=== PATIENT | female | born 1960 | race Caucasian/White ===

== ENCOUNTER → 2017-02-17 | Outpatient (CLI) | payer BC ==
--- NOTE | 2017-02-18 15:01 | MY ---
EXAMINATION: Bilateral digital mammography utilizing CAD. HISTORY: Screening exam. Comparison is made to previous studies dated 12/21/2014, 09/29/2012. FINDINGS: Bilateral scattered fibroglandular densities. There are stable loosely grouped calcific ations within the inferior right breast. No suspicious calcifications, masses or architectural dist ortions. No pathologic appearing lymph nodes, no abnormal skin thickening or nipple inversion. C AD highlighted regions appear normal at this time. IMPRESSION: BI-RADS category II -benign finding. Continued screening according to ACR-ACS guidel stefanie suggested. THE FALSE-NEGATIVE RATE OF MAMMOGRAM IS APPROXIMATELY 10%. MANAGEMENT OF A PALPABLE ABNORMALITY MUST BE BASED UPON CLINICAL GROUNDS. SENSITIVITY FOR DETECTION OF ABNORMALITIES IN DENSE BREASTS IS LOW. NOTE: A letter will be sent to the patient regarding findings. [facility] -- CECILY Yu [phone] - FAX [phone]
== END ==
LOC: MW.MAM 15:49
PROVIDERS: ATTEND Obstetrics & Gynecology
DX: Z12.31 Encounter for screening mammogram for malignant neoplasm of breast (principal)
CPT/HCPCS: G0202; G0202-26

== ENCOUNTER 2021-10-13 12:53 | Emergency (ER) | payer BC ==
[2021-10-13] MEDS ORDERED: Metoclopramide 10 MG/2 ML SDV IVPUSH ONE (14:57)
--- NOTE | 2021-10-13 15:01 | EDM.PDOC ---
ED HPI GENERAL MEDICAL PROBLEM - General Chief Complaint: General Stated Complaint: DIZZY SICK Time Seen by Provider: 10/13/21 14:43 Source of Information: Reports: Patient History Limitations: Reports: No Limitations - History of Present Illness INITIAL COMMENTS - FREE TEXT/NARRATIVE: Patient is a 60-year-old female who presents today for neck and head pain. Patient states she was seen a chiropractor yesterday some adjustments since then she is a this headache neck pain and just not feeling right in her face. Denies any other neurological symptoms no vision changes no change in mental status no changes in sensation or weakness in extremities. Head Pain Score (Numeric/FACES): 7 - Related Data Allergies Allergy/AdvReac Type Severity Reaction Status Date / Time Latercillin Allergy Hives Uncoded 10/13/21 13:49 Home Meds: Home Meds Escitalopram [Lexapro] 10 mg PO DAILY 08/01/18 [History] Hydrocodone/Acetaminophen [Hydrocodon-Acetaminophen 5-325] 1 each PO Q4HR PRN #20 tablet 08/01/18 [Rx] Past Medical History - Past Health History Medical/Surgical History: Denies Medical/Surgical History Other Cardiovascular History: Recent Stress test Jesús, turned out good, " have had symptoms of pain behind breast bone, discovered drinking water or anything does help relieve" Other Gastrointestinal History: "Recent symptoms of feeling pain right behind breastbone, relieved with water and feels kind of in steps that it relieves it, I can feel it pass through 'different feeling'" 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: Musculoskeletal History: Reports: Fracture Other Musculoskeletal History: May have fractured an ankle bothered for 8 months at one time, "LEFT Hip pain, low back and Left Shoulder pain" Psychiatric History: Reports: Anxiety Dermatologic History: Reports: Other (See Below) Other Dermatologic History: hx: excision pre-cancerous skin area to face - Infectious Disease History Infectious Disease History: Reports: None - Past Surgical History Oncologic Surgical History: Reports: Lumpectomy, Other (See Below) Other Oncologic Surgeries/Procedures: Right Benign Breast Lumpectomy years ago Social & Family History - Family History Family Medical History: No Pertinent Family History - Caffeine Use Caffeine Use: Reports: Coffee ED ROS GENERAL - Review of Systems Review Of Systems: See Below Constitutional: Reports: No Symptoms HEENT: Reports: No Symptoms Respiratory: Reports: No Symptoms Cardiovascular: Reports: No Symptoms Endocrine: Reports: No Symptoms GI/Abdominal: Reports: No Symptoms : Reports: No Symptoms Musculoskeletal: Reports: No Symptoms Skin: Reports: No Symptoms Neurological: Reports: Headache, Numbness Psychiatric: Reports: No Symptoms Hematologic/Lymphatic: Reports: No Symptoms Immunologic: Reports: No Symptoms ED EXAM, GENERAL - Physical Exam Exam: See Below Exam Limited By: No Limitations General Appearance: Alert, WD/WN, No Apparent Distress Eye Exam: Bilateral Eye: EOMI, PERRL Ears: Normal External Exam, Normal TMs Nose: Normal Inspection Head: Atraumatic Neck: Normal Inspection, Supple, Non-Tender, Full Range of Motion Respiratory/Chest: No Respiratory Distress, Lungs Clear, Normal Breath Sounds Cardiovascular: Normal Peripheral Pulses, Regular Rate, Rhythm, No Edema GI/Abdominal: Normal Bowel Sounds, Soft, Non-Tender Extremities: Normal Inspection Neurological: Alert, Oriented, CN II-XII Intact, Normal Cognition, Normal Gait Course - Vital Signs Last Recorded V/S: Last Vital Signs Temp 96.9 F 10/13/21 13:50 Pulse 67 10/13/21 13:50 Resp 16 10/13/21 13:50 BP 124/73 10/13/21 13:50 Pulse Ox 97 10/13/21 13:50 - Orders/Labs/Meds Labs: Laboratory Tests 10/13/21 10/13/21 Range/Units 15:55 15:55 WBC 6.83 (4.0-11.0) K/uL RBC 4.41 (4.30-5.90) M/uL Hgb 13.7 (12.0-16.0) g/dL Hct 41.0 (36.0-46.0) % MCV 93.0 (80.0-98.0) fL MCH 31.1 (27.0-32.0) pg MCHC 33.4 (31.0-37.0) g/dL RDW Std Deviation 41.8 (28.0-62.0) fl RDW Coeff of Steven 12 (11.0-15.0) % Plt Count 291 (150-400) K/uL MPV 10.80 (7.40-12.00) fL Neut % (Auto) 72.3 (48.0-80.0) % Lymph % (Auto) 21.1 (16.0-40.0) % [place] % (Auto) 5.4 (0.0-15.0) % Eos % (Auto) 0.9 (0.0-7.0) % Baso % (Auto) 0.3 (0.0-1.5) % Neut # (Auto) 4.9 (1.4-5.7) K/uL Lymph # (Auto) 1.4 (0.6-2.4) K/uL [place] # (Auto) 0.4 (0.0-0.8) K/uL Eos # (Auto) 0.1 (0.0-0.7) K/uL Baso # (Auto) 0.0 (0.0-0.1) K/uL Nucleated RBC % 0.0 /100WBC Nucleated RBCs # 0 K/uL Sodium 141 (136-145) mmol/L Potassium 4.1 (3.5-5.1) mmol/L Chloride 104 (98-107) mmol/L Carbon Dioxide 26.2 (21.0-32.0) mmol/L BUN 13 (7.0-18.0) mg/dL Creatinine 0.8 (0.6-1.0) mg/dL Est Cr Clr Drug Dosing 66.19 mL/min Estimated GFR (MDRD) > 60.0 ml/min Glucose 113 H (74-106) mg/dL Calcium 9.4 (8.5-10.1) mg/dL Total Bilirubin 0.4 (0.2-1.0) mg/dL AST 15 (15-37) IU/L ALT 25 (14-63) IU/L Alkaline Phosphatase 57 (46-116) U/L Total Protein 8.0 (6.4-8.2) g/dL Albumin 4.3 (3.4-5.0) g/dL Globulin 3.7 (2.6-4.0) g/dL Albumin/Globulin Ratio 1.2 (0.9-1.6) Meds: Medications Discontinued Medications Generic Name Dose Route Start Last Admin Trade Name Freq PRN Reason Stop Dose Admin Iopamidol 100 ml 10/13/21 17:48 10/13/21 17:49 Iopamidol 755 Mg/Ml 500 Ml Multipack Bottle IVPUSH 10/13/21 17:49 100 ml ONETIME ONE Administration Metoclopramide HCl 10 mg 10/13/21 14:57 10/13/21 16:11 Metoclopramide 10 Mg/2 Ml Sdv IVPUSH 10/13/21 14:58 Not Given ONETIME ONE - Re-Assessments/Exams Free Text/Narrative Re-Assessment/Exam: 10/13/21 18:03 Pt updates phone number is [phone]-patient [phone] Departure - Departure Time of Disposition: 18:03 Disposition: Against Medical Advice 07 Condition: Fair Clinical Impression: Brain edema - Discharge Information *PRESCRIPTION DRUG MONITORING PROGRAM REVIEWED*: Not Applicable *COPY OF PRESCRIPTION DRUG MONITORING REPORT IN PATIENT NOEL: Not Applicable Instructions: Cerebral Edema, Adult Referrals: Garth Khan MD [Primary Care Provider] - Forms: ED Department Discharge Additional Instructions: You were seen today for head and neck pain. We did a CAT scan which you we are giving you results printed out separately. It shows some enhancing lesions that we are not clear as to what they are. The worst case scenario that this could possibly be a cancer like mass or an abscess we need to do a MRI to get a better picture of what these lesions are we would have like for you to stay in the hospital however you would like to leave and follow-up with your primary care physician. We stressed to you that this is important for you to please follow- up as soon as possible if you cannot get into see your primary care physician tomorrow or the next day to return to the ED immediately. The following information is given to patients seen in the emergency department who are being discharged to home. This information is to outline your options for follow-up care. We provide all patients seen in our emergency department with a follow-up referral. The need for follow-up, as well as the timing and circumstances, are variable depending upon the specifics of your emergency department visit. If you don't have a primary care physician on staff, we will provide you with a referral. We always advise you to contact your personal physician following an emergency department visit to inform them of the circumstance of the visit and for follow-up with them and/or the need for any referrals to a consulting specialist. The emergency department will also refer you to a specialist when appropriate. This referral assures that you have the opportunity for follow-up care with a specialist. All of these measure are taken in an effort to provide you with optimal care, which includes your follow-up. Under all circumstances we always encourage you to contact your private physician who remains a resource for coordinating your care. When calling for follow-up care, please make the office aware that this follow-up is from your recent emergency room visit. If for any reason you are refused follow-up, please contact the [facility] Emergency Department at and asked to speak to the emergency department charge nurse. Please follow up with your primary care physician. If you do not have a primary care physician, see below: [facility] [address] [place] [id number] [facility] [address] [place] [address] Sepsis Event Note (ED) - Evaluation Sepsis Screening Result: No Definite Risk - Focused Exam Vital Signs: Vital Signs Temp Pulse Resp BP Pulse Ox 10/13/21 13:50 96.9 F 67 16 124/73 97 - Assessment/Plan Plan: Patient is a 60-year-old female presents today for neck and hip pain after seeing a chiropractor. Patient sign of any decrease in station no neurological deficits patient will have a CT head and neck and be reassessed.
[2021-10-13 16:30] LABS: BLOOD UREA NITROGEN,BUN 13 mg/dL (7.0-18.0); CARBON DIOXIDE,CO2 26.2 mmol/L (21.0-32.0); CHLORIDE,CL 104 mmol/L (98-107); GLUCOSE RANDOM 113 mg/dL (74-106); POTASSIUM,K 4.1 mmol/L (3.5-5.1); SODIUM,NA 141 mmol/L (136-145)
--- NOTE | 2021-10-13 17:35 | CT ---
INDICATION: Headache, neck pain. TECHNIQUE: CTA head with contrast bolus tracking and 3D MIP reconstruction. CTA neck with contrast bolus tracking and 3D MIP reconstruction. FINDINGS: CTA head: There are at least 3 masses centered in the right temporal lobe that have thick peripheral enhancement and marked surrounding edema. The largest measures nearly 4 centimeters maximally. There is resulting mild midline shift of 2 millimeters to the left. Angiographically, there is normal filling of the major vasculature. There is no large vessel occlusion. No aneurysm is identified. CTA neck: There is no carotid or vertebral artery stenosis or dissection. IMPRESSION: Three enhancing masses centered in the right temporal lobe that may represent tumor or abscess. Recommend contrast-enhanced MRI for further evaluation. Preliminary results were discussed with Dr. Lunsford at 1730 hours on 10/13/2021. Please note that all CT scans at this facility use dose modulation, iterative reconstruction, and/or weight-based dosing when appropriate to reduce radiation dose to as low as reasonably achievable. Dictated by Abelardo Zavala MD @ 10/14/2021 5:52:40 AM (Electronically Signed)
[2021-10-13] MEDS ORDERED: Iopamidol 755 MG/ML 500 ML Multipack Bottle IVPUSH ONE (17:48)
[2021-10-13 19:27] VITALS: BP 121/71; PULSE 71
== END 2021-10-13 18:05 | disposition left against medical advice (07) ==
LOC: MW.ED 12:53
DX: G93.6 Cerebral edema (principal); Z88.0 Allergy status to penicillin
CPT/HCPCS: 36415; 70496; 70498; 80053; 85025; 99284; Q9967

== ENCOUNTER 2022-09-25 22:19 | Emergency (ER) | payer BC ==
[2022-09-26] MEDS ORDERED: Sodium Chloride 0.9% 2.5 ML Syringe FLUSH PRN (00:12)
[2022-09-26] MEDS ORDERED: Sodium Chloride 0.9% 10 ML Syringe FLUSH PRN (00:12)
[2022-09-26 00:37] LABS: CARBON DIOXIDE,CO2 29.5 mmol/L (21.0-32.0); POTASSIUM,K 4.1 mmol/L (3.5-5.1)
[2022-09-26] MEDS ORDERED: Alum Hydro/Mag Hydro/Simeth XS 15 ML, Lidocaine 2% 5 ML PO ONE ×2 (01:14)
[2022-09-26] MEDS ORDERED: Morphine 2 MG/ML SYRINGE IVPUSH ONE (01:55)
[2022-09-26] MEDS ORDERED: Iopamidol 755 MG/ML 500 ML Multipack Bottle IVPUSH STA (03:06)
[2022-09-26 03:30] VITALS: BP 119/76; PULSE 64
== END 2022-09-26 03:25 | disposition home or self-care (01) ==
LOC: MW.ED 22:19
DX: R07.89 Other chest pain (principal); Z88.0 Allergy status to penicillin
CPT/HCPCS: 36415; 71045; 71275; 80053; 83690; 84484; 85025; 85379; 93005; 99285; A9270; Q9967

== ENCOUNTER 2022-09-27 06:04 | Emergency (ER) | payer BC ==
[2022-09-27 07:05] LABS: CARBON DIOXIDE,CO2 28.9 mmol/L (21.0-32.0); POTASSIUM,K 3.8 mmol/L (3.5-5.1)
[2022-09-27] MEDS ORDERED: Lactated Ringers 1,000 ML IV ONE (07:16)
[2022-09-27] MEDS ORDERED: diphenhydrAMINE 50 MG/ML SDV IVPUSH ONE (07:16)
[2022-09-27] MEDS ORDERED: Prochlorperazine 10 MG in Sodium Chloride 0.9% 50 ML IV ONE (07:16)
[2022-09-27 07:33] LABS: CORONAVIRUS COVID-19 NAA NEGATIVE (NEGATIVE); INFLUENZA A NAA NEGATIVE (NEGATIVE); INFLUENZA B NAA NEGATIVE (NEGATIVE); RESPIRATORY SYNCYTIAL VIR NAA NEGATIVE (NEGATIVE)
[2022-09-27] MEDS ORDERED: Ketorolac 30 MG/ML SDV IVPUSH ONE (07:40)
[2022-09-27] MEDS ORDERED: Dexamethasone 4 MG Tab PO ONE (07:41)
[2022-09-27 09:05] VITALS: BP 125/64; PULSE 54
== END 2022-09-27 09:05 | disposition home or self-care (01) ==
LOC: MW.ED 06:04
DX: C71.9 Malignant neoplasm of brain, unspecified (principal); Z88.0 Allergy status to penicillin; Z20.822 Contact with and (suspected) exposure to COVID-19
CPT/HCPCS: 0241U; 36415; 70450; 80053; 85025; 96365; 96375; 99284; J0780; J1200; J1885; J3490; J7120; J8540

== ENCOUNTER 2022-10-08 12:55 | Emergency (ER) | payer BC ==
[2022-10-08] MEDS ORDERED: Sodium Chloride 0.9% 1,000 ML IV ONE (13:07)
[2022-10-08] MEDS ORDERED: diphenhydrAMINE 50 MG/ML SDV IVPUSH ONE (13:08)
[2022-10-08] MEDS ORDERED: Prochlorperazine 10 MG in Sodium Chloride 0.9% 50 ML IV ONE (13:08)
[2022-10-08] MEDS ORDERED: Ketorolac 30 MG/ML SDV IVPUSH ONE (13:09)
[2022-10-08 16:20] VITALS: BP 130/75; PULSE 47
== END 2022-10-08 16:20 | disposition home or self-care (01) ==
LOC: MW.ED 12:55
DX: R51.9 Headache, unspecified (principal); Z88.0 Allergy status to penicillin
CPT/HCPCS: 51702; 70450; 96365; 96375; 99284; J0780; J1200; J1885; J3490; J7030

== ENCOUNTER 2022-10-09 22:13 | Observation (INO) | payer BC ==
[2022-10-09] MEDS ORDERED: Dexamethasone 10 MG/ML SDV IVPUSH ONE (22:16)
[2022-10-09 22:56] LABS: BLOOD UREA NITROGEN,BUN 32 mg/dL (7.0-18.0); CARBON DIOXIDE,CO2 27.8 mmol/L (21.0-32.0); CHLORIDE,CL 104 mmol/L (98-107); GLUCOSE RANDOM 92 mg/dL (74-106); POTASSIUM,K 3.9 mmol/L (3.5-5.1); SODIUM,NA 143 mmol/L (136-145)
[2022-10-09 22:57] LABS: ESTIMATED GFR 85 mL/min (>60)
[2022-10-09] MEDS ORDERED: levETIRAcetam 500 MG in Sodium Chloride 0.9% 100 ML IV ONE (23:15)
[2022-10-09] MEDS ORDERED: levETIRAcetam 1,000 MG in Sodium Chloride 0.9% 100 ML IV ONE (23:15)
[2022-10-10] MEDS ORDERED: Morphine 2 MG/ML SYRINGE IVPUSH PRN (00:08)
[2022-10-10] MEDS ORDERED: LORazepam 2 MG/ML SDV IVPUSH PRN (00:08)
[2022-10-10] MEDS ORDERED: Dexamethasone 4 MG/ML SDV IVPUSH SCH ×2 (00:15→05:30)
[2022-10-10 05:26] VITALS: BP 148/75; PULSE 91
[2022-10-10] MEDS ORDERED: levETIRAcetam 500 MG in Sodium Chloride 0.9% 100 ML IV SCH (10:00)
== END 2022-10-10 08:57 | disposition expired ==
LOC: MW.ED 22:13 → MW.MS 10-10 00:09
PROVIDERS: ADMIT Internal Medicine; ATTEND Internal Medicine
DX: Z51.5 Encounter for palliative care (principal); G93.6 Cerebral edema; C71.9 Malignant neoplasm of brain, unspecified; Z79.899 Other long term (current) drug therapy; Z20.822 Contact with and (suspected) exposure to COVID-19; Z98.890 Other specified postprocedural states
CPT/HCPCS: 36415; 70450; 80053; 83605; 85025; 87635; 96374; 96375; 96376; 99285; G0378; J1100; J1953; J2270; J3490; U0002